=== PATIENT | female | born 2000 | race Caucasian/White ===

== ENCOUNTER 2020-10-28 11:32 | Outpatient (REF) | payer BC, MEDICAID, SELFPAY ==
--- NOTE | 2020-10-28 | US_ITS ---
EXAMINATION: US PELVIS, COMPLETE CLINICAL INFORMATION: Follow-up large left ovarian cyst; the last menstrual period is not specified. COMPARISON: Prior pelvic ultrasound examinations, most recently 07/24/2020. TECHNIQUE: Transabdominal and transvaginal imaging was performed. FINDINGS: The uterus is of normal size and echogenicity measuring 7.7 x 2.8 x 4.8 cm. The uterus is anteverted. A regular homogeneous endometrium is identified measuring 0.3 cm. An intrauterine device is seen, properly situated within the endometrial canal. Both ovaries are upper normal in size and show normal echogenicity. The right ovary measures 4.3 x 3.8 x 2.5 cm for a volume of 21.4 mL. The left ovary measures 4.6 x 3.5 x 2.3 cm for a volume of 19.4 mL. There is interim resolution of the previously identified dominant left ovarian follicle. Multiple small physiologic follicles are incidentally noted within the bilateral ovaries. There is no pelvic free fluid. No adnexal mass is seen. US/US transvaginal IMPRESSION: 1. There is interim resolution of the previously identified dominant left ovarian follicle. 2. An intrauterine device is seen, properly situated within the endometrial canal.
--- NOTE | 2020-10-28 | US_ITS ---
EXAMINATION: US PELVIS, COMPLETE CLINICAL INFORMATION: Follow-up large left ovarian cyst; the last menstrual period is not specified. COMPARISON: Prior pelvic ultrasound examinations, most recently 07/24/2020. TECHNIQUE: Transabdominal and transvaginal imaging was performed. FINDINGS: The uterus is of normal size and echogenicity measuring 7.7 x 2.8 x 4.8 cm. The uterus is anteverted. A regular homogeneous endometrium is identified measuring 0.3 cm. An intrauterine device is seen, properly situated within the endometrial canal. Both ovaries are upper normal in size and show normal echogenicity. The right ovary measures 4.3 x 3.8 x 2.5 cm for a volume of 21.4 mL. The left ovary measures 4.6 x 3.5 x 2.3 cm for a volume of 19.4 mL. There is interim resolution of the previously identified dominant left ovarian follicle. Multiple small physiologic follicles are incidentally noted within the bilateral ovaries. There is no pelvic free fluid. No adnexal mass is seen. US/US pelvic complete IMPRESSION: 1. There is interim resolution of the previously identified dominant left ovarian follicle. 2. An intrauterine device is seen, properly situated within the endometrial canal.
== END 2020-10-28 11:33 | disposition home or self-care (01) ==
LOC: HO.US 11:32
PROVIDERS: Visit Provider Advanced Practice Midwife
DX: N83.209 Unspecified ovarian cyst, unspecified side (principal)
CPT/HCPCS: 76830; 76856

== ENCOUNTER → 2020-11-10 10:22 | Outpatient (BNVA) | payer BC, MEDICAID, SELFPAY | PROVIDERS: PCP Internal Medicine; Referring Provider Internal Medicine; Visit Provider Advanced Practice Midwife | DX: Z76.89 Persons encountering health services in other specified circumstances (principal) ==

== ENCOUNTER 2021-03-25 13:58 | Outpatient (REF) | payer BC, MEDICAID, SELFPAY ==
[2021-03-25 15:45] LABS: Syphilis Screen Nonreactive (Nonreactive)
[2021-03-26 03:37] LABS: CT PCR NOT DETECTED (Not Detect.); NG PCR NOT DETECTED (Not Detect.)
[2021-03-26 09:07] LABS: BV Int Neg Control Negative (Negative); BV Int Pos Control Positive (Positive)
[2021-03-27 08:50] LABS: HIV AB/AG Nonreactive (Nonreactive); HIV Num 1 0.07 S/CO (0.00-0.99)
[2021-03-27 08:57] LABS: HBsAGNum1 0.19 S/CO (0.00-0.99); Hepatitis B Surface Antigen Negative (Negative); ~HepC Num1 0.29 S/CO (0.00-0.79); ~Hepatitis C Antibody Nonreactive (Nonreactive)
== END 2021-03-25 13:59 | disposition home or self-care (01) ==
LOC: HO.LAB 13:58
PROVIDERS: PCP Internal Medicine; Visit Provider Obstetrics & Gynecology
DX: B00.9 Herpesviral infection, unspecified (principal)
CPT/HCPCS: 36415; 86780; 86803; 87255; 87340; 87389; 87480; 87491; 87510; 87591; 87660

== ENCOUNTER → 2021-04-08 11:12 | Outpatient (BNVA) | payer BC, MEDICAID, SELFPAY | PROVIDERS: PCP Internal Medicine; Visit Provider Obstetrics & Gynecology ==

== ENCOUNTER 2021-06-16 08:54 | Outpatient (REF) | payer BC, MEDICAID, SELFPAY ==
[2021-06-17 02:43] LABS: CT PCR DETECTED (Not Detect.); NG PCR NOT DETECTED (Not Detect.)
== END 2021-06-16 08:55 | disposition home or self-care (01) ==
LOC: HO.LAB 08:54
PROVIDERS: PCP Internal Medicine; Visit Provider Advanced Practice Midwife
DX: Z01.419 Encounter for gynecological examination (general) (routine) without abnormal findings (principal); Z11.3 Encounter for screening for infections with a predominantly sexual mode of transmission; R39.15 Urgency of urination; Z20.2 Contact with and (suspected) exposure to infections with a predominantly sexual mode of transmission
CPT/HCPCS: 87491; 87591

== ENCOUNTER 2022-11-03 09:28 | Outpatient (REF) | payer BC, MEDICAID, SELFPAY ==
[2022-11-03 16:58] LABS: CT PCR NOT DETECTED (Not Detect.); NG PCR NOT DETECTED (Not Detect.)
[2022-11-04 09:33] LABS: BV Int Neg Control Negative (Negative); BV Int Pos Control Positive (Positive)
== END 2022-11-03 09:29 | disposition home or self-care (01) ==
LOC: HO.LNP 09:28
PROVIDERS: Visit Provider Obstetrics & Gynecology
DX: Z01.419 Encounter for gynecological examination (general) (routine) without abnormal findings (principal); Z20.2 Contact with and (suspected) exposure to infections with a predominantly sexual mode of transmission
CPT/HCPCS: 87480; 87491; 87510; 87591; 87660; 88142